=== PATIENT | male | born 1985 | race Caucasian/White ===

== ENCOUNTER 2020-03-01 10:28 | Outpatient (REF) | payer SELFPAY | END 2020-03-01 10:29 | disposition home or self-care (01) | LOC: HO.LAB 10:28 | PROVIDERS: Visit Provider Internal Medicine | DX: Z20.828 Contact with and (suspected) exposure to other viral communicable diseases (principal) | CPT/HCPCS: C9803; U0003 ==

== ENCOUNTER 2020-08-22 14:45 | Emergency (ER) | payer OTHER, SELFPAY ==
[2020-08-22 14:48] VITALS: BP 160/85; PULSE 76; RESP 18; TEMP 37.2; O2SAT 98; BMI 31.4
--- NOTE | 2020-08-22 15:31 | ED.BACK ---
HPI - Back Pain/Injury General Chief Complaint: Back Pain/Injury Stated Complaint: back pain Time Seen by Provider: 08/22/20 15:31 History of Present Illness HPI Narrative: Patient with left-sided low back pain after lifting injury at work which happened 2 days ago complains of back pain with no numbness weakness or tingling no changes to bowel or bladder no radiation of pain Related Data Previous Rx's Medication Instructions Recorded acetaminophen 1,000 mg PO Q6H PRN #30 tab 08/22/20 cyclobenzaprine 10 mg PO TID PRN #14 tab 08/22/20 ibuprofen 800 mg PO Q8H PRN #30 tab 08/22/20 Allergies Allergy/AdvReac Type Severity Reaction Status Date / Time No Known Allergies Allergy Unverified 01/01/20 18:52 Review of Systems Review of Systems: Positive for left-sided low back pain Negatives are no fever no chills no dizziness no weakness no fainting no feeling faint no chest pain no shortness of breath no abdominal pain no changes to bowel or bladder no dysuria no frequency no incontinence, no skin rashes, no numbness weakness or tingling Yes all other systems are reviewed and are negative [facility] Past Medical History Source: nursing notes reviewed Medical History (Updated 08/23/20 @ 00:00 by Background Daemon) No active medical problems Social History Social History Advance Directives: No Advance Directives Information Provided: Yes Physical Exam Vital Signs: Vital Signs: Last Vital Signs Temp 99.0 F 08/22/20 14:48 Pulse 76 08/22/20 14:48 Resp 18 08/22/20 14:48 BP 160/85 H 08/22/20 14:48 Pulse Ox 98 08/22/20 14:48 Body Mass Index 31.4 General appearance no acute distress Head is normocephalic atraumatic Neck is supple and nontender Respiratory no distress Abdomen soft nontender The back exam the skin is normal there are no wounds no redness no deformities, there is no bony tenderness, there is left paraspinal lower lumbar tenderness, there is no CVA tenderness Extremities full range of motion x4 Skin no rash Neuro no focal motor or sensory deficit, gait and balance are normal Course Course Course Narrative: Patient with work-related musculoskeletal back pain is referred were connection Discharge Plan Discharge Clinical Impression: Strain of lumbar region Patient Disposition: Home, Self-Care Additional Instructions: Follow with workmen's compensation doctor as needed Motrin and or Tylenol as needed for pain Return any concerns Chiropractor and physical therapy are almost always helpful, but usually it gets better in a few days Prescriptions: New ibuprofen 800 mg tablet 800 mg PO Q8H PRN (Reason: pain) Qty: 30 RF: 0 cyclobenzaprine 10 mg tablet 10 mg PO TID PRN (Reason: muscle spasm) Qty: 14 RF: 0 acetaminophen 500 mg tablet 1,000 mg PO Q6H PRN (Reason: pain) Qty: 30 RF: 0 Interventions: ED Discharge Assessment Last Done: 08/22/20 15:44 Discharge Date/Time: 08/22/20 15:45
== END 2020-08-22 15:45 | disposition home or self-care (01) ==
PROVIDERS: Emergency Provider Emergency Medicine Emergency Medical Services; PCP Internal Medicine
DX: S39.012A Strain of muscle, fascia and tendon of lower back, initial encounter (principal); X50.0XXA Overexertion from strenuous movement or load, initial encounter; Y93.9 Activity, unspecified; Y92.9 Unspecified place or not applicable; Y99.9 Unspecified external cause status; Z79.899 Other long term (current) drug therapy
CPT/HCPCS: 99283

== ENCOUNTER 2021-02-07 17:58 | Emergency (ER) | payer OTHER, SELFPAY ==
[2021-02-07 19:46] VITALS: BP 138/84; PULSE 59; RESP 18; TEMP 36.8; O2SAT 100; BMI 33.4
[2021-02-07 20:07] LABS: COVID-19 Test Positive (Negative)
[2021-02-07 20:58] VITALS: PULSE 68; O2SAT 100
--- NOTE | 2021-02-07 21:16 | ED_ITS ---
HPI - URI/Sore Throat General Chief Complaint: General Medical Stated Complaint: loss taste body aches Time Seen by Provider: 02/07/21 20:40 Source: patient Mode of arrival: ambulatory Limitations: no limitations History of Present Illness HPI Narrative: 35-year-old male who is vaccinated to COVID presenting to the ED with complaints of a coated exposure and intermittent headache/body aches and loss of taste that started on Sunday. Denies recent travel. Denies any measured fevers, chills, dizziness, neck pain/stiffness, chest pain or shortness of breath, sore throat, ear pain, nasal congestion/rhinorrhea, cough, wheezing, nausea/vomiting/diarrhea, abdominal pain, dysuria, hematuria, penile discharge or any other symptoms complaints or concerns at this time. MD elicited complaint: other (Loss of taste with intermittent headaches and COVID exposure) Onset (ago): day(s) (Four days) Consistency: constant and progressively worsening Severity: mild Able to tolerate fluids by mouth: Yes Exacerbating factors: nothing Relieving factors: nothing Context: sick contacts Associated symptoms: denies other symptoms Treatments prior to arrival: none Related Data Previous Rx's Medication Instructions Recorded acetaminophen 500 mg tablet 1,000 mg PO Q6H PRN #30 tab 08/22/20 cyclobenzaprine 10 mg tablet 10 mg PO TID PRN #14 tab 08/22/20 ibuprofen 800 mg tablet 800 mg PO Q8H PRN #30 tab 08/22/20 acetaminophen 500 mg tablet 1,000 mg PO QID PRN #14 tab 02/07/21 (Tylenol Extra Strength) azithromycin 250 mg tablet See Rx Instructions .ROUTE 02/07/21 .COMPLEX #6 tab cyclobenzaprine 10 mg tablet 10 mg PO Q8H PRN #14 tab 02/07/21 ibuprofen 800 mg tablet 800 mg PO Q8H PRN #14 tab 02/07/21 Allergies Allergy/AdvReac Type Severity Reaction Status Date / Time No Known Allergies Allergy Unverified 01/01/20 18:52 Review of Systems Review of Systems: Constitutional : Positive loss of taste, No Weight loss, No Fever, No Chills, No Night Sweats, No Fatigue, No Malaise ENT/Mouth : No Hearing loss, No Ear Pain, No Nasal Congestion, No Sinus Pain, No Hoarseness, No sore throat, No Rhinorrhea, No Swallowing Difficulty Eyes: No Eye Pain, No Swelling, No Redness, No Foreign Body, No Discharge, No Vision Changes Cardiovascular : No Chest Pain, No SOB, No Dyspnea on Exertion, No Orthopnea, No Edema, No Palpitations Respiratory : No Cough, No Sputum, No Wheezing, No Smoke Exposure, No Dyspnea Gastrointestinal : No Nausea, No Vomiting, No Diarrhea, No Constipation, No abdominal Pain, No Hematochezia, No Melena Genitourinary : no irregular bleeding, No Dysuria, No Urinary Frequency, No Hematuria, No Urinary Incontinence, No Urgency, No Flank Pain, No Urinary Flow Changes, No Hesitancy Musculoskeletal : No joint pain, No Myalgias, No Joint Swelling Skin : No Skin Lesions, No rash Neuro : Positive intermittent headaches, No Weakness, No Numbness, No Paresthesias, No Loss of Consciousness, No Dizziness Psych : No Anxiety/Panic, No Depression, No SI/HI/AH/VH, No Social Issues, Heme/Lymph: No Bruising, No Bleeding,No Lymphadenopathy Endocrine : No Polyuria, No Polydipsia, No Temperature Intolerance Yes all other systems are reviewed and are negative [facility] Past Medical History Attestation statement: The following information was validated with the patient. Medical History No active medical problems Social History Social History Advance Directives: No Advance Directives Information Provided: Yes Physical Exam Vital Signs: Vital Signs: Last Vital Signs Temp 98.2 F 02/07/21 19:46 Pulse 68 02/07/21 20:58 Resp 18 02/07/21 19:46 BP 138/84 02/07/21 19:46 Pulse Ox 100 02/07/21 20:58 Body Mass Index 33.4 vital signs have been reviewed as normal and appeared to be correct. Blood pressure normal Heart rate normal. Respiration rate normal. Temperature normal. Oxygen saturation normal. Appearance: Alert. Oriented X3. No acute distress. Head: Normal external exam. Normocephalic. Atraumatic. Eyes: PERRLA. EOMI. Conjunctiva and sclera normal. Eyelids normal. ENT: Pharynx normal. Uvula midline. Moist mucous membranes. Neck: Normal inspection. Neck supple. FROM. CVS: Normal heart rate and rhythm. Respiratory: No respiratory distress. Painless inspiration. Skin: Skin warm and dry. Normal skin color. Normal skin turgor. No rashes/lesions/lacerations noted. Extremities: Extremities exhibit normal range of motion. Extremities nontender. Neuro: Oriented X 3. No motor deficit. No sensory deficit. Reflexes normal. Normal steady gait. No focal neuro deficits noted. Vascular: + radial pulses Normal cap refill. No cyanosis noted to upper extremity nails Course Course Course Narrative: 35-year-old male who is vaccinated to COVID presenting to the ED with complaints of a coated exposure and intermittent headache/body aches and loss of taste that started on Sunday. Denies recent travel. Denies any measured fevers, chills, dizziness, neck pain/stiffness, chest pain or shortness of breath, sore throat, ear pain, nasal congestion/rhinorrhea, cough, wheezing, nausea/vomiting/diarrhea, abdominal pain, dysuria, hematuria, penile discharge or any other symptoms complaints or concerns at this time. Patient positive for COVID. No imaging or labs indicated. Will DC home with instructions return if any new or worsening symptoms to follow up with primary care provider. Patient understands agrees with this plan. MDM - URI/Sore Throat Medical Records Attestation: I reviewed the patient's medical records. Lab Data Attestation: I reviewed the patient's lab results. Labs: Lab Results 02/07/21 Range/Units 19:52 COVID-19 (TRE) Positive A (Negative) COVID-19 Clin Com See Note Discharge Plan Discharge Clinical Impression: COVID-19 Patient Disposition: Home, Self-Care Instructions: COVID-19 (Coronavirus Disease 2019) (ED) Additional Instructions: A New Treatment Option for COVID-19 Patients recently diagnosed with COVID-19 have a new treatment option ? mo noclonal antibodies. There are three FDA-authorized COVID-19 monoclonal antibodies: casirivimab and imdevimab (REGEN-COV), bamlanivimab and etesevimab, and sotrovimab. We are currently offering this treatment to eligible patients by referral [email or web address] . The research so far shows that for certain people, this treatment may help their symptoms improve sooner and might make it less likely for them to need to go to the hospital. These are new drugs that are still being studied. They have been authorized for emergency use by the FDA based on phase III clinical data that showed monoclonal antibody treatment may decrease ED visit, hospitalization and/or . Eligible patients should be treated as soon as possible (ideally within 3 days from date of specimen collection of a positive SARS CoV2 PCR) and within 10 days from the first day of onset of symptoms. If you believe your patient is eligible and the patient agrees to be considered for this treatment, there are two ways to make the referral: 1. If you are a [facility] provider:?Send a CIS message to the ?Covid Monoclonal Antibody Coordinator? pool with the necessary patient information including the date of the positive SARS CoV2 PCR test and when the first day of symptoms started . 2. If you are a provider from outside of the [facility]: Please call [phone] tel:[phone] . If you are a patient interested in this treatment: Please talk to your healthcare provider. Prescriptions: New cyclobenzaprine 10 mg tablet 10 mg PO Q8H PRN (Reason: Muscle spasm) Qty: 14 RF: 0 azithromycin 250 mg tablet See Rx Instructions .ROUTE .COMPLEX Qty: 6 RF: 0 ibuprofen 800 mg tablet 800 mg PO Q8H PRN (Reason: pain) Qty: 14 RF: 0 acetaminophen [Tylenol Extra Strength] 500 mg tablet 1,000 mg PO QID PRN (Reason: fever or pain) Qty: 14 RF: 0 No Action ibuprofen 800 mg tablet 800 mg PO Q8H PRN (Reason: pain) Qty: 30 RF: 0 cyclobenzaprine 10 mg tablet 10 mg PO TID PRN (Reason: muscle spasm) Qty: 14 RF: 0 acetaminophen 500 mg tablet 1,000 mg PO Q6H PRN (Reason: pain) Qty: 30 RF: 0 Referrals: Nieves Ferreira MD [Primary Care Provider] - 2 days Stand Alone Forms: Work/School Release Print Language: Filipino
== END 2021-02-07 21:40 | disposition home or self-care (01) ==
PROVIDERS: Emergency Provider Internal Medicine; PCP Internal Medicine
DX: U07.1 COVID-19 (principal)
CPT/HCPCS: 36415; 87635; 99283

== ENCOUNTER 2024-01-23 00:09 | Emergency (ER) | payer OTHER, SELFPAY ==
--- NOTE | ~2024-01-23 | XR_ITS ---
EXAMINATION: XR HAND, LEFT CLINICAL INFORMATION: Injury. Acute pain. COMPARISON: None available. TECHNIQUE: PA, lateral, and oblique views of the left hand. FINDINGS: No fractures, malalignments, soft tissue emphysematous changes or embedded radiopaque foreign bodies identified. XR/XR hand LT 2V IMPRESSION: No acute fractures or acute subluxations. Electronically signed by: Yariel Rutledge MD 01/23/2024 02:56 AM EDT
[2024-01-23 00:10] VITALS: BP 153/90; PULSE 67; RESP 18; TEMP 36.6; O2SAT 99; BMI 28.4
[2024-01-23 00:59] VITALS: BP 139/77; PULSE 60; RESP 17; TEMP 36.9; O2SAT 99
--- NOTE | 2024-01-23 01:12 | ED_ITS ---
HPI - Extremity Problem General Chief complaint: Extremity Injury, Upper Stated complaint: left hand laceration Time Seen by Provider: 01/23/24 01:04 Source: patient Mode of arrival: ambulatory Limitations: no limitations History of Present Illness ED Provider: rony JANE Narrative: Patient comes here with left palmar laceration from the impact of door of the pressing machine smashed his hand on the dorsum aspect but got the laceration on the palmar aspect patient is able to make fist neurovascular intact last tetanus showed talked to date Related Data Previous Rx's ?Medication ?Instructions ?Recorded erythromycin 5 mg/gram (0.5 %) eye 0.5 inch ophthalmic (eye) TID #1 g 07/17/22 ointment amoxicillin 875 mg-potassium 1 tab PO BID #20 tabs 01/23/24 clavulanate 125 mg tablet Allergies Allergy/AdvReac Type Severity Reaction Status Date / Time No Known Allergies Allergy Verified 01/23/24 00:14 Review of Systems 2 Review of Systems: Yes all other systems are reviewed and are negative PMFSH Past Medical History Medical History No active medical problems Social History Social History Patient Tobacco Use Status: Never used Tobacco Smoked in Last 30 Days: No Use of substances other than those prescribed or required for medical reasons: Yes Substance Use Type: Marijuana Advance Directives: No Do you have a plan to hurt others: No Plan Physical Exam 2 Vital Signs: Vital Signs: Last Vital Signs Temp 98.5 F 01/23/24 01:34 Pulse 60 01/23/24 01:34 Resp 17 01/23/24 01:34 BP 139/77 01/23/24 01:34 Pulse Ox 99 01/23/24 01:34 O2 Del Method Room Air 01/23/24 01:34 BMI result Body Mass Index 28.4 Extrem: Hand/finger images: 1. 1 cm superficial laceration left palmar aspect neurovascular intact Medications Administered Discontinued Medications Generic Name Dose Route Start Last Admin Trade Name Freq PRN Reason Stop Dose Admin Amoxicillin/Clavulanate Potassium 875 mg 01/23/24 01:12 01/23/24 01:30 Amoxicillin/Potassium Clav 875 Mg Tablet PO 01/23/24 01:13 875 mg ONCE ONE Administration Lidocaine HCl 2 ml 01/23/24 01:12 01/23/24 01:30 Lidocaine Hcl 1 % Mpf 2 Ml Vial INFILTRATI 01/23/24 01:13 2 ml ONCE ONE Administration Procedures Laceration Laceration 1: Site: hand Side (If applicable): left Size (cm): 1 Description: linear Depth: simple, single layer Local Anesthetic: lidocaine 1% Amount of anesthesia used (mL): 1 Pre-repair: irrigated extensively Skin layer closed with: nylon Size (cm): 5-0 Number of sutures: 3 Discharge Plan Discharge Clinical Impression: Laceration of hand Patient Disposition: Home, Self-Care Instructions: Laceration (ED) Additional Instructions: Local care as advised Antibiotic as prescribed Suture removal in 7-10 days Prescriptions: New amoxicillin-pot clavulanate 875-125 mg tablet 1 tab PO BID Qty: 20 0RF No Action erythromycin 5 mg/gram (0.5 %) ointment 0.5 inch ophthalmic (eye) TID Qty: 1 0RF Interventions: ED Discharge Assessment Last Done: 01/23/24 01:34 Discharge Date/Time: 01/23/24 01:34 Print Language: Jordanian
[2024-01-23] MEDS: Amoxicillin/Potassium Clav 875 MG TABLET PO (01:30)
[2024-01-23] MEDS: Lidocaine HCl 1 % MPF 2 ML VIAL INFILTRATI (01:30)
[2024-01-23 01:34] VITALS: BP 139/77; PULSE 60; RESP 17; TEMP 36.9; O2SAT 99
== END 2024-01-23 01:34 | disposition home or self-care (01) ==
LOC: HO.ED 01:28
PROVIDERS: Emergency Provider Internal Medicine; PCP Internal Medicine
DX: S61.412A Laceration without foreign body of left hand, initial encounter (principal); W20.8XXA Other cause of strike by thrown, projected or falling object, initial encounter; Y93.89 Activity, other specified; Y92.59 Other trade areas as the place of occurrence of the external cause; Y99.0 Civilian activity done for income or pay
CPT/HCPCS: 12001; 73120; 99284; J2003

== ENCOUNTER 2024-02-01 09:14 | Outpatient (AMB) | payer OTHER, SELFPAY ==
--- NOTE | 2024-02-01 09:31 | AM.OFFWIN_ITS ---
Intake Vital Signs 3 02/01/24 09:33 Height 5 ft 8 in Weight 202 lb BMI 30.7 BP 118/70 Blood Pressure Location Rt brachial Position Sitting Pulse 66 Pulse Source Pulse Oximeter Pulse Oximetry (%) 98 Oxygen Delivery Method Room Air Intake Visit Reasons: EP-stiches removal Intake Note: Patient here for stitch removal which were placed at [facility]. Stitches have been in for about 10 days. Patient Tobacco Use Status: Never used Tobacco Allergies No Known Allergies Allergy (Verified 02/01/24 09:34) Medication List - Last Reconciled 02/01/24 by Timothy Mast MD Do you need a note to return to daycare/school/sports/work: No HPI EP-stiches removal 2 HPI0 Details Patient had stitches placed a week ago when he injured his left hand because of the door Three stitches removed without any complications They were placed on 9 of this month in emergency room Tetanus vaccine up-to-date Patient tolerated procedure well Wound is well healed HPI Comments 2 History of Present Illness0 Details [facility] Medical History No active medical problems Social History Patient Tobacco Use Status: Never used Tobacco Substance Use Type: Marijuana Physical Exam Vital Signs: Last Vital Signs Pulse 66 02/01/24 09:33 BP 118/70 02/01/24 09:33 Pulse Ox 98 02/01/24 09:33 Oxygen Delivery Method Room Air 02/01/24 09:33 BMI result Body Mass Index 30.7 Eyes General: appearance normal, both eyes and all related structures Resp Effort & Inspection: normal respiratory effort and able to speak in complete sentences Extrem Hand/finger images: 2 1. Three sutures removed without any complication, wound is well healed Psych Mental Status: mental status grossly normal Assessment & Plan Assessment & Plan (1) Visit for suture removal: Code(s): Z48.02 - Encounter for removal of sutures Plan Patient had stitches placed a week ago when he injured his left hand because of the door Three stitches removed without any complications They were placed on 9 of this month in emergency room Tetanus vaccine up-to-date Patient tolerated procedure well Wound is well healed Coding Level of Care Code Est Pt Level 3 (55021) Diagnoses Visit for suture removal Z48.02 Comment
[2024-02-01 09:33] VITALS: BP 118/70; PULSE 66; O2SAT 98; BMI 30.7
== END 2024-02-01 09:57 | disposition home or self-care (01) ==
PROVIDERS: PCP Internal Medicine; Visit Provider Internal Medicine
DX: Z48.02 Encounter for removal of sutures (principal)

== ENCOUNTER → 2024-02-01 09:14 | Outpatient (BNVA) | payer OTHER, SELFPAY | PROVIDERS: PCP Internal Medicine; Visit Provider Internal Medicine | DX: Z48.02 Encounter for removal of sutures (principal) | CPT/HCPCS: 99212 ==

== ENCOUNTER 2024-05-14 09:48 | Outpatient (AMB) | payer OTHER, SELFPAY ==
[2024-05-14 10:33] VITALS: BP 130/80; PULSE 64; TEMP 36.4; O2SAT 98; BMI 30.7
--- NOTE | 2024-05-14 10:33 | A.OFFPC_ITS ---
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 Patient has been complaining of a mass just below his belly button which has been present now since 2018. Initially was painful, was seen at the walk-in 2018 and referred to general surgery. Patient however states that he never received an appointment to be seen by surgeon. Masses still present infraumbilical area, nontender to palpation no active drainage, no discomfort when doing any heavy lifting. Patient states however that he is going to be starting a new job and wants to make sure that it is not a hernia. Has not yet had his flu vaccine, would like to get 1 today [facility] Medical History (Updated 05/14/24 @ 11:01 by Nieves Ferreira MD) History of COVID-19 Mass of soft tissue of abdomen Surgical History (Updated 05/14/24 @ 11:01 by Nieves Ferreira MD) No pertinent past surgical history Family History (Updated 05/14/24 @ 11:06 by Nieves Ferreira MD) Paternal Grandfather Mental health disorder Diabetes mellitus Paternal Grandmother Mental health disorder Mother Mental health disorder Father Essential hypertension Atherosclerotic coronary vascular disease Mother Asthma Maternal Grandfather Diabetes mellitus Maternal Uncle Diabetes mellitus Paternal Uncle Diabetes mellitus Social History Housing: House Patient Tobacco Use Status: Never used Tobacco e-Cigarette/Vaping Use: Never Used Substance Use Type: Marijuana service: No Current occupational status: employed Cognitive needs: No Hearing needs: No Vision needs: No Questionnaire PHQ-9 Over the last 2 weeks, how often have you been bothered by any of the following problems? 1. Little interest or pleasure in doing things: not at all 2. Feeling down, depressed, or hopeless: not at all 3. Trouble falling or staying asleep, or sleeping too much: not at all 4. Feeling tired or having little energy: not at all 5. Poor appetite or overeating: not at all 6. Feeling bad about yourself - or that you are a failure or have let yourself or your family down: not at all 7. Trouble concentrating on things, such as reading the newspaper or watching television: not at all 8. Moving or speaking so slowly that other people could have noticed. Or the opposite - being so fidgety or restless that you have been moving around a lot more than usual: not at all 9. Thoughts that you would be better off or of hurting yourself in some way: not at all Total score: 0 Depression Screening Interpretation: Negative Depression Screening Done: Yes 49233 - PHQ-9 Billing: Yes Source: Developed by Drs. Mike Blanco, Evelin Massey, Peter Henderson and colleagues, with an educational rebecca from [employer]. Thrive Questionnaire Date Thrive assessed: 05/14/24 I am a: Patient What is your living situation today?: I have a steady place to live Within the past 12 months, did the food you bought not last and you didn't have the money to get more?: Often true Within the past 12 months, did you worry whether your food would run out before you got money to buy more?: Often true Do you have trouble paying for medicines?: No Do you have trouble getting transportation to medical appointments?: No Do you have trouble paying your heating and electricity bill?: Yes Do you have trouble taking care of your child, family member or friend?: No Do you have trouble with day-to-day activities such as bathing, preparing meals, shopping, managing finances, etc.?: No Are you currently unemployed and looking for a job?: No Are you interested in more education?: No Please select the resources that you would like help with: Food Currently or been in a relationship where the following occur: No concerns reported THRIVE Score: 3 AUDIT C Alcohol Use Questionnaire (AUDIT-C) 1. How often do you have a drink containing alcohol?: Never Total Score: 0 ADRIANE-7 AMB Questionnaire ADRIANE-7 Date ADRIANE - 7 assessed: 05/14/24 Feeling nervous, anxious, or on edge: 0 = Not at all Not being able to stop or control worryin = Not at all Worrying too much about different things: 0 = Not at all Trouble relaxin = Not at all Being so restless that it is hard to sit still: 0 = Not at all Becoming easily annoyed or irritable: 1 = Several days Feeling afraid as if something awful might happen: 0 = Not at all Total ADRIANE-7 score (0-4 normal; 5-9 mild; 10-14 moderate; 15-21 severe): 1 Source: Developed by Drs. Mike Blanco, Evelin Massey, Peter Henderson and colleagues, with an educational rebecca from [employer]. ADRIANE-7 Assessment Billing ADRIANE-7 Assessment Tool: ADRIANE-7 Assessment 32465 Review of Systems Const All systems reviewed & are unremarkable except as noted in HPI and below Physical exam (Primary Care) Vital Signs: Last Vital Signs Temp 97.6 F 05/14/24 10:33 Pulse 64 05/14/24 10:33 BP 130/80 05/14/24 10:33 Pulse Ox 98 05/14/24 10:33 Oxygen Delivery Method Room Air 05/14/24 10:33 BMI result Body Mass Index 30.7 Tobacco/Smoking Status: Tobacco use Status Tobacco use date assessed 05/14/24 05/14/24 10:36 Patient Tobacco Use Status Never used Tobacco 05/14/24 10:36 e-Cigarette/Vaping Use Never Used 05/14/24 10:41 PHQ-9: PHQ-9 Score PHQ-9: Total score 0 05/14/24 10:46 Depression Screening Interpretation: Negative Thrive Assessment: Date of Thrive Assessment Date Thrive assessed 05/14/24 05/14/24 10:46 Currently or been in a relationship where the following occur: No concerns reported Const Other: Alert oriented x3, no acute distress noted ambulatory normal gait Neck Other: Supple with no lymphadenopathy GI Other: Fluctuant nontender mass on infraumbilical area, no surrounding erythema or increased warmth over area Palpation (GI): Soft to palpation, nontender and no guarding Auscultation: normal bowel sounds Coding Level of Care Code New Pt Level 3 (75698) Diagnoses Mass of soft tissue of abdomen R19.00 Flu vaccine need Z23 Additional Codes PHQ-9 - 01724 - PHQ-9 Billing: Yes ([id number]) ADRIANE-7 Assessment Billing - ADRIANE-7 Assessment Tool: ADRIANE-7 Assessment 00683 ([id number]) Assessment & Plan Assessment & Plan (1) Mass of soft tissue of abdomen: Code(s): R19.00 - Intra-abdominal and pelvic swelling, mass and lump, unspecified site Category: Medical Plan: Ordered an abdominal ultrasound evaluate for possible hernia (2) Flu vaccine need: Code(s): Z23 - Encounter for immunization Plan: Flu vaccine given today. Orders: Orders US abdomen complete Today R19.00 - Intra-abdominal and pelvic swelling, mass and lump, unspecified site Influenza [id number] Immunization Today Z23 - Encounter for immunization Medications: New Fluarix Triv [id number] (PF) (flu vacc [id number] 6mos up(PF)) 0.5 mL IM ONCE 0.5 mL 0RF NS Z23 - Encounter for immunization
== END 2024-05-14 11:15 | disposition home or self-care (01) ==
PROVIDERS: PCP Internal Medicine; Visit Provider Internal Medicine
DX: R19.00 Intra-abdominal and pelvic swelling, mass and lump, unspecified site (principal); Z23 Encounter for immunization

== ENCOUNTER → 2024-05-14 09:48 | Outpatient (BNVA) | payer OTHER, SELFPAY | PROVIDERS: PCP Internal Medicine; Visit Provider Internal Medicine | DX: R19.00 Intra-abdominal and pelvic swelling, mass and lump, unspecified site (principal) | CPT/HCPCS: 96127; 99202 ==

== ENCOUNTER 2024-06-11 08:53 | Outpatient (REF) | payer OTHER, SELFPAY ==
--- NOTE | ~2024-06-11 | US_ITS ---
EXAMINATION: US PELVIS LIMITED HISTORY: R19.00 - SOFT TISSUE MASS BELOW BELLY BUTTON COMPARISON: There are no prior studies for comparison. TECHNIQUE: Sonographic examination of the palpable abnormality of the anterior abdominal wall below the umbilicus was performed. FINDINGS: There is a fat-containing ventral hernia measuring approximately 5.5 cm in size. The mouth of the hernia measures approximately 1.6 cm in size. US/US pelvic limited IMPRESSION: Fat-containing ventral hernia as described. Electronically signed by: Mike Weiss MD 06/11/2024 10:34 AM [facility] [place]
== END 2024-06-11 08:54 | disposition home or self-care (01) ==
LOC: HO.US 08:53
PROVIDERS: PCP Internal Medicine; Visit Provider Internal Medicine
DX: R19.00 Intra-abdominal and pelvic swelling, mass and lump, unspecified site (principal)
CPT/HCPCS: 76857

== ENCOUNTER → 2024-06-11 08:54 | Outpatient (BNV) | payer OTHER, SELFPAY | PROVIDERS: PCP Internal Medicine; Visit Provider Radiology Diagnostic Radiology | DX: K43.9 Ventral hernia without obstruction or gangrene (principal); R19.00 Intra-abdominal and pelvic swelling, mass and lump, unspecified site | CPT/HCPCS: 76857 ==

== ENCOUNTER 2024-06-16 08:21 | Outpatient (AMB) | payer OTHER, SELFPAY ==
[2024-06-16 08:24] VITALS: BP 147/86; PULSE 59; BMI 31.6
--- NOTE | 2024-06-16 08:24 | MHC.OFFVIS ---
Vital Signs 06/16/24 08:24 Height 5 ft 8 in Weight 208 lb BMI 31.6 BP 147/86 H Blood Pressure Location Rt brachial Position Sitting Pulse 59 Intake Visit Reasons: Ventral hernia Intake Note: Patient referred by pcp Dr. Ferreira for verntral hernia. Present for 7yrs. Patient c/o: bothersome, stinging around area, feels bloated. 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 He has had this several years time. Over the last several months it has markedly increased in size and become more symptomatic. He would like to have repaired. He has no other GI issues or complaints. He tolerates a diet. Does occasional heavy lifting. No prior abdominal surgeries. Chart was reviewed and patient evaluated [facility] Medical History Hernia, ventral History of COVID-19 Mass of soft tissue of abdomen Surgical History No pertinent past surgical history Family History Paternal Grandfather Mental health disorder Diabetes mellitus Paternal Grandmother Mental health disorder Mother Mental health disorder Father Essential hypertension Atherosclerotic coronary vascular disease Mother Asthma Maternal Grandfather Diabetes mellitus Maternal Uncle Diabetes mellitus Paternal Uncle Diabetes mellitus Social History Housing: House Patient Tobacco Use Status: Never used Tobacco e-Cigarette/Vaping Use: Never Used Substance Use Type: Marijuana service: No Current occupational status: employed Cognitive needs: No Hearing needs: No Vision needs: No Physical Exam Vital Signs: Last Vital Signs Pulse 59 06/16/24 08:24 BP 147/86 H 06/16/24 08:24 BMI result Body Mass Index 31.6 Const Other: Well-developed male. No acute distress. Chest Other: Chest breath sounds bilaterally, HS 1 in 2 GI Other: Patient was examined both supine and standing with Valsalva. Bilateral groin exam negative. Genitalia within normal limits. Patient has a roughly 4 cm incarcerated umbilical hernia. Assessment & Plan Assessment & Plan (1) Incarcerated umbilical hernia: Code(s): K42.0 - Umbilical hernia with obstruction, without gangrene Category: Surgical Plan Risks, benefits, and alternatives open umbilical hernia repair with mesh were reviewed with the patient included but not limited to bleeding, infection, recurrence, numbness, pain, scarring, bowel injury and the patient wishes to proceed. All questions answered. Arrangements will be made for this on a day which is convenient for him. Coding Level of Care Code New Pt Level 5 (74694) Diagnoses Incarcerated umbilical hernia K42.0
== END 2024-06-16 08:42 | disposition home or self-care (01) ==
PROVIDERS: PCP Internal Medicine; Referring Provider Internal Medicine; Visit Provider Surgery
DX: K42.0 Umbilical hernia with obstruction, without gangrene (principal)
CPT/HCPCS: 99204

== ENCOUNTER → 2024-06-16 08:21 | Outpatient (BNVA) | payer SELFPAY | PROVIDERS: PCP Internal Medicine; Referring Provider Internal Medicine; Visit Provider Surgery | DX: K42.0 Umbilical hernia with obstruction, without gangrene (principal) | CPT/HCPCS: 99202 ==

== ENCOUNTER 2024-07-11 10:11 | Day surgery (SDC) | payer OTHER, SELFPAY ==
[2024-07-09 09:54] VITALS: BMI 31.6
--- NOTE | 2024-07-10 12:05 | P.HPSUR_ITS ---
Pre-Procedural Eval Section A - 24 Hr Update-Section A only Date of Service: 07/11/24 The patient is an INPATIENT: No Changes since office visit: No Cold of Flu in the past 2 weeks, No New Medical Problems, No Changes in Medication and No Patient answered all questions Section B - Complete if H&P > 30 days Chief Complaint: Umbilical hernia with obstruction, Allergies: Allergies Allergy/AdvReac Type Severity Reaction Status Date / Time No Known Allergies Allergy Verified 06/16/24 08:29 Review of Systems Sugical H&P ROS: Negative: Constitution, Cardiovascular, Respiratory, Neurological, Psychiatric, Hem-Onc, Allergic/Immunologic, Gastrointestinal, Genitourinary, Musculoskeletal, Integumentary, Endocrine and Eyes/Ears/Nose/T hroat Exam Surgical H&P Exam: Normal: HEENT, Normal: Heart, Normal: Lungs, Normal: Extremities, Normal: Abdomen, Normal: Skin and Normal: Neurological Plan I have reviewed the history and physical and performed a pertinent physical examination on my patient. No changes have occurred unless specified. Time Spent With Patient Time: Total time managing care of this patient today ____ minutes.
[2024-07-11] VITALS (7 sets, daily range): BP systolic 128–153; BP diastolic 68–102; PULSE 52–71; RESP 16; TEMP 36.1–36.4; O2SAT 95–100; BMI 31.2
--- NOTE | 2024-07-11 12:08 | P.CONAN_ITS ---
Documented by User: Sandee Barba NP 07/10/24 10:09 HPI - Anesthesia Eval Consult details Narrative: 38yo M for Large Repair Hernia Umbilical Reducible with mesh PMFSH Active Problems Active Problems: All Active Problems Incarcerated umbilical hernia (Acute) COVID-19 (Acute) Hernia, ventral (Acute) Mass of soft tissue of abdomen (Acute) Past Medical History Medical History (Updated 07/09/24 @ 09:51 by Jessica Horowitz RN) Hernia, ventral Mass of soft tissue of abdomen Family History Family History Paternal Grandfather Mental health disorder Diabetes mellitus Paternal Grandmother Mental health disorder Mother Mental health disorder Father Essential hypertension Atherosclerotic coronary vascular disease Mother Asthma Maternal Grandfather Diabetes mellitus Maternal Uncle Diabetes mellitus Paternal Uncle Diabetes mellitus Surgical History Surgical History (Updated 06/16/24 @ 08:40 by Keith Mata MD) No pertinent past surgical history Social History Social History Housing: House Patient Tobacco Use Status: Never used Tobacco e-Cigarette/Vaping Use: Never Used Use of substances other than those prescribed or required for medical reasons: Yes Substance Use Type: Marijuana Substance Use Type Other:: Last smoked 07/10 Substance Use Frequency: Daily Are you DNR?: No Advance Directives: No Advance Directives Information Provided: Yes service: No Current occupational status: employed Cognitive needs: No Hearing needs: No Vision needs: No Meds Allergies Allergy/AdvReac Type Severity Reaction Status Date / Time No Known Allergies Allergy Verified 06/16/24 08:29 Exam Height,Weight and Vital Signs: Height 5 ft 8 in Weight 94.347 kg Assessment and Plan Assessment Anesthesia Assessment: Chart Reviewed Documented by User: Awilda Ordonez DO 07/11/24 12:11 HPI - Anesthesia Eval Consult details Narrative: 38yo M for Large Repair Hernia Umbilical Reducible with mesh Daily marijuana PMFSH Past Medical History Medical History (Updated 07/09/24 @ 09:51 by Jessica Horowitz RN) Hernia, ventral Mass of soft tissue of abdomen Family History Family History Paternal Grandfather Mental health disorder Diabetes mellitus Paternal Grandmother Mental health disorder Mother Mental health disorder Father Essential hypertension Atherosclerotic coronary vascular disease Mother Asthma Maternal Grandfather Diabetes mellitus Maternal Uncle Diabetes mellitus Paternal Uncle Diabetes mellitus Family history of problems with anesthesia: No Surgical History Surgical History (Updated 06/16/24 @ 08:40 by Keith Mata MD) No pertinent past surgical history History of Problems with Anesthesia: No Social History Social History Housing: House Patient Tobacco Use Status: Never used Tobacco e-Cigarette/Vaping Use: Never Used Use of substances other than those prescribed or required for medical reasons: Yes Substance Use Type: Marijuana Substance Use Type Other:: Last smoked 07/10 Substance Use Frequency: Daily Are you DNR?: No Advance Directives: No Advance Directives Information Provided: Yes service: No Current occupational status: employed Cognitive needs: No Hearing needs: No Vision needs: No Meds Allergies Allergy/AdvReac Type Severity Reaction Status Date / Time No Known Allergies Allergy Verified 06/16/24 08:29 Exam Exam Date and Time: 07/11/24 1208 Height,Weight and Vital Signs: Height 5 ft 8 in Weight 94.347 kg Vital Signs Temperature 97.6 F 07/11/24 12:00 Pulse Rate 52 07/11/24 12:00 Respiratory Rate 16 07/11/24 12:00 Blood Pressure 150/87 H 07/11/24 12:00 Pulse Oximetry 99 07/11/24 12:00 Oxygen Delivery Method Room Air 07/11/24 12:00 Temperature 97.6 F 07/11/24 12:00 Pulse Rate 52 07/11/24 12:00 Respiratory Rate 16 07/11/24 12:00 Blood Pressure 150/87 H 07/11/24 12:00 Pulse Oximetry 99 07/11/24 12:00 Oxygen Delivery Method Room Air 07/11/24 12:00 Airway Mallampati Class: II TM Dist: >3cm Neck ROM: Full Loose/Missing/Broken Teeth: No (patient denies any loose or broken teeth) Heart: S1S2 Lungs: CTAB Assessment and Plan Assessment Anesthesia Assessment: Anesthesia Plan Discussed and Chart Reviewed Final Anesthetic Review Family History of Problems with Anesthesia: No History of Problems with Anesthesia: No NPO: Yes ASA Class: II Final Preanesthetic Review: No Changes in Pt Med Stat, Meds/Allgs Chart Re viewed, Consent Obtained/Reviewed and Anes Risks/Benef Reviewed Patient Risk: Low Procedure Risk: Low Anesthetic Plan Anesthetic Plan: GA and Agree w/ Assess. and Plan Disposition: Standard PACU
[2024-07-11] MEDS: Lactated Ringers 1,000 ML 100 ML IVCONT (12:13)
--- NOTE | 2024-07-11 13:19 | W.PM.OPN ---
Operative Note Operative Note Date of Service: 07/11/24 Narrative: Preoperative diagnosis: [] Large incarcerated umbilical hernia Postop diagnosis: [] The same Procedure [] open umbilical herniorrhaphy with Bard mesh, partial omentectomy of large omental contents which were not reducible Surgeon: [] Adolfo Cardiac Exercise Physiologist: [] Type of Anesthesia: [] General Indication for surgery: [] Roughly 4 cm incarcerated umbilical hernia with omental contents Findings: [] Patient brought to the operating room, placed on operative table supine position, after an adequate level of general anesthesia was induced, the patient's abdomen which was moderately corpulent was prepped and draped in usual sterile fashion using an infraumbilical curvilinear incision, this carried down through skin, subcutaneous tissue, were large hernia sac was identified, dissected off the posterior aspect of the umbilicus and dissected down through the fascia. Sac was opened and incarcerated omental contents along with sac were amputated using Bovie and 2-0 Vicryl ties. Fascia margins were circumferentially cleared. Inappropriately sized Bard mesh was placed in the defect and the superficial layer of the mesh was circumferentially sutured to the surrounding fascia using interrupted 0 Ethibond suture. At completion of procedure, mesh was in good position with no tension or gallops. Wound was irrigated, secured hemostasis, and closed in the following manner; posterior aspect of the umbilicus was tacked to the wound floor using interrupted 3-0 Vicryl sutures. Skin was closed using interrupted inverted dermal 3-0 Vicryl sutures followed by Steri-Strips and sterile dressings. Wound was infiltrated the beginning at the end of the case with 0.5% Marcaine/1% lidocaine. Sponge, needle, and instrument counts reported correct. Patient tolerated the procedure well and emerged from anesthesia stable condition. EBL minimal
[2024-07-11] MEDS: oxyCODONE HCl Immed Release 5 MG TABLET PO (14:00)
== END 2024-07-11 14:45 | disposition home or self-care (01) ==
LOC: HO.SSS 10:13
PROVIDERS: PCP Internal Medicine; Visit Provider Surgery
PROC: (CPT 49594; principal; 2024-07-11 12:40)
DX: K42.0 Umbilical hernia with obstruction, without gangrene (principal)
CPT/HCPCS: 49594; 88302; C1781; J0690; J1100; J2003; J2405; J2704; J2795; J3010

== ENCOUNTER → 2024-07-11 10:11 | Outpatient (BNV) | payer OTHER, SELFPAY | PROVIDERS: PCP Internal Medicine; Visit Provider Surgery | DX: K42.0 Umbilical hernia with obstruction, without gangrene (principal) | CPT/HCPCS: 49594 ==

== ENCOUNTER 2024-07-22 11:05 | Outpatient (AMB) | payer OTHER, SELFPAY ==
--- NOTE | 2024-07-22 11:06 | MHC.OFFVIS ---
Vital Signs 07/22/24 11:09 Height 5 ft 8 in Weight 205 lb BMI 31.2 Intake Visit Reasons: S/P Lg. incarcerated umbilical hernia w/mesh Intake Note: Patient here s/p open umbilical herniorrhaphy with Bard mesh, Reports incision healing well. Patient c/o: minimal discomfort Surgery: 07-11-2024. Allergies No Known Allergies Allergy (Verified 07/22/24 11:07) HPI Comments Details: Patient was to follow up. Tolerating diet. Having regular bowel habits. He has minimal incisional discomfort. He is increasing his activity level. [facility] Medical History Hernia, ventral Mass of soft tissue of abdomen Surgical History Incarcerated umbilical hernia (07/11/24) No pertinent past surgical history Family History Paternal Grandfather Mental health disorder Diabetes mellitus Paternal Grandmother Mental health disorder Mother Mental health disorder Father Essential hypertension Atherosclerotic coronary vascular disease Mother Asthma Maternal Grandfather Diabetes mellitus Maternal Uncle Diabetes mellitus Paternal Uncle Diabetes mellitus Social History Housing: House Patient Tobacco Use Status: Never used Tobacco e-Cigarette/Vaping Use: Never Used Substance Use Type: Marijuana service: No Current occupational status: employed Cognitive needs: No Hearing needs: No Vision needs: No Physical Exam Vital Signs: BMI result Body Mass Index 31.2 GI Other: Abdomen is soft. Incision clean dry and intact healing very well Assessment & Plan Assessment & Plan (1) Status post umbilical hernia repair, follow-up exam: Code(s): Z09 - Encounter for follow-up examination after completed treatment for conditions other than malignant neoplasm Category: Medical Plan Patient was been given local instructions including avoiding strenuous activities next few weeks time, no for out of work and then three-week light duty when he starts. All questions answered. Patient will otherwise follow-up p.r.n.. Coding Level of Care Code Global (36989) Diagnoses Status post umbilical hernia repair, follow-up exam Z09
[2024-07-22 11:09] VITALS: BMI 31.2
== END 2024-07-22 11:32 | disposition home or self-care (01) ==
LOC: HO.HGS 11:05
PROVIDERS: PCP Internal Medicine; Visit Provider Surgery
DX: K42.9 Umbilical hernia without obstruction or gangrene (principal); Z09 Encounter for follow-up examination after completed treatment for conditions other than malignant neoplasm
CPT/HCPCS: 99212

== ENCOUNTER → 2024-07-22 11:05 | Outpatient (BNVA) | payer OTHER, SELFPAY | PROVIDERS: PCP Internal Medicine; Visit Provider Surgery | DX: Z09 Encounter for follow-up examination after completed treatment for conditions other than malignant neoplasm (principal); Z87.19 Personal history of other diseases of the digestive system; Z98.890 Other specified postprocedural states | CPT/HCPCS: 99212 ==

== ENCOUNTER 2024-11-11 08:39 | Outpatient (REF) | payer OTHER, SELFPAY ==
[2024-11-11 13:11] LABS: MANUAL DIFF FLAG NO
[2024-11-11 13:29] LABS: Hematocrit 43.6 % (42.0-52.0); Hemoglobin 14.6 g/dl (14.0-18.0); Imm Gran Abs Auto 0.04 X10*3/uL (0.00-0.03); Imm Gran Pct Auto 0.7 % (0.0-0.4); Lymphocytes Absolute Auto 1.6 X10*3/uL (1.2-4.9); Mean Corpuscular HGB Conc 33.5 g/dl (31.0-36.0); Mean Corpuscular Hemoglobin 31.0 pg (27.0-33.0); Mean Corpuscular Volume 92.6 fL (80.0-98.0); NRBC Abs Auto 0.000 X10*3/uL (0.0-0.012); NRBC Pct Auto 0.0 /100WBC (0.0-0.2); Platelet Count 219 X10*3/uL (160-400); Red Blood Count 4.71 X10*6/uL (4.60-5.80); White Blood Count 5.4 X10*3/uL (4.8-10.8)
[2024-11-11 13:49] LABS: Alanine Aminotransferase 28 U/L (0-40); Anion Gap 12 (12-20); Aspartate Amino Transferase 33 U/L (5-37); Blood Urea Nitrogen 18 mg/dL (9-16); Calcium 8.9 mg/dL (8.4-10.2); Carbon Dioxide 23 mmol/L (22-29); Chloride 109 mmol/L (96-108); Cholesterol 231 mg/dL (<200); Estimated Glomerular Filt Rate > 60; HDL Cholesterol 34 mg/dL (>40); Potassium 3.7 mmol/L (3.3-5.1); Sodium 140 mmol/L (135-145); Triglycerides 310 mg/dL (<150)
== END 2024-11-11 08:40 | disposition home or self-care (01) ==
LOC: HO.HMGCLDS 08:39
PROVIDERS: PCP Internal Medicine; Visit Provider Internal Medicine
DX: Z00.01 Encounter for general adult medical examination with abnormal findings (principal); E66.811 Obesity, class 1; Z68.32 Body mass index [BMI] 32.0-32.9, adult; E73.9 Lactose intolerance, unspecified; Z13.31 Encounter for screening for depression; Z13.39 Encounter for screening examination for other mental health and behavioral disorders; Z13.220 Encounter for screening for lipoid disorders; Z13.1 Encounter for screening for diabetes mellitus
CPT/HCPCS: 36415; 80048; 80061; 82306; 84450; 84460; 85025; 96127; 99395

== ENCOUNTER 2024-11-11 08:39 | Outpatient (AMB) | payer OTHER, SELFPAY ==
--- NOTE | 2024-11-11 08:48 | A.OFFPC_ITS ---
Vital Signs 11/11/24 08:49 Height 5 ft 8 in Weight 214 lb BMI 32.5 BP 120/74 Blood Pressure Location Lt brachial Position Sitting Pulse 74 Pulse Source Pulse Oximeter Pulse Oximetry (%) 100 Oxygen Delivery Method Room Air Intake Visit Reasons: Annual PE Allergies No Known Allergies Allergy (Verified 11/11/24 09:33) Medication List - Last Reconciled 11/11/24 by Nieves Ferreira MD No Known Home Meds Tobacco use date assessed: 05/14/24 Dental Screening Dental Screen Date: 05/14/24 HPI Annual PE HPI Details - The patient is a 39-year-old male pres enting today for his physical exam - complains of recurrent heel pain , all eviated by rolling a frozen water bottle under the foot, associated with prolonged standing at work. - Family history of diabetes mellitus: S ignificant family history with father and grandfather affected, prompting screening. - Lactose intolerance: Experiences gastr ointestinal discomfort with dairy, attributed to lactose intolerance, also present in his mother. - Recent hernia surgery: Underwent herni a repair surgery three months ago, performed by Dr. Mata. [facility] Medical History (Updated 11/11/24 @ 09:40 by Nieves Ferreira MD) Obesity (BMI 30.0-34.9) Hernia, ventral Mass of soft tissue of abdomen Surgical History (Updated 11/11/24 @ 09:40 by Nieves Ferreira MD) Incarcerated umbilical hernia (07/11/24) No pertinent past surgical history Family History Paternal Grandfather Mental health disorder Diabetes mellitus Paternal Grandmother Mental health disorder Mother Mental health disorder Father Essential hypertension Atherosclerotic coronary vascular disease Mother Asthma Maternal Grandfather Diabetes mellitus Maternal Uncle Diabetes mellitus Paternal Uncle Diabetes mellitus Social History Housing: House Patient Tobacco Use Status: Never used Tobacco e-Cigarette/Vaping Use: Never Used Substance Use Type: Marijuana service: No Current occupational status: employed Cognitive needs: No Hearing needs: No Vision needs: No Questionnaire PHQ-9 Over the last 2 weeks, how often have you been bothered by any of the following problems? 1. Little interest or pleasure in doing things: several days 2. Feeling down, depressed, or hopeless: not at all 3. Trouble falling or staying asleep, or sleeping too much: several days 4. Feeling tired or having little energy: several days 5. Poor appetite or overeating: more than half the days 6. Feeling bad about yourself - or that you are a failure or have let yourself or your family down: not at all 7. Trouble concentrating on things, such as reading the newspaper or watching television: not at all 8. Moving or speaking so slowly that other people could have noticed. Or the opposite - being so fidgety or restless that you have been moving around a lot more than usual: not at all 9. Thoughts that you would be better off or of hurting yourself in some way: not at all Total score: 5 Depression Screening Interpretation: Negative Depression Screening Done: Yes [id number] - PHQ-9 Billing: Yes Source: Developed by Drs. Mike Blanco, Evelin Massey, Peter Henderson and colleagues, with an educational rebecca from [employer] Thrive Questionnaire Date Thrive assessed: 11/11/24 I am a: Patient What is your living situation today?: I have a steady place to live Within the past 12 months, did the food you bought not last and you didn't have the money to get more?: Often true Within the past 12 months, did you worry whether your food would run out before you got money to buy more?: Often true Do you have trouble paying for medicines?: No Do you have trouble getting transportation to medical appointments?: No Do you have trouble paying your heating and electricity bill?: Yes Do you have trouble taking care of your child, family member or friend?: No Do you have trouble with day-to-day activities such as bathing, preparing meals, shopping, managing finances, etc.?: No Are you currently unemployed and looking for a job?: No Are you interested in more education?: No Please select the resources that you would like help with: Food Currently or been in a relationship where the following occur: No concerns reported THRIVE Score: 3 AUDIT C Alcohol Use Questionnaire (AUDIT-C) 1. How often do you have a drink containing alcohol?: Monthly or less 2. How many drinks containing alcohol do you have on a typical day when you are drinking?: 1 or 2 3. How often do you have six or more drinks on one occasion?: Less than monthly Total Score: 2 Score Reviewed/Action Taken: Yes ADRIANE-7 AMB Questionnaire ADRIANE-7 Date ADRIANE - 7 assessed: 11/11/24 Feeling nervous, anxious, or on edge: 0 = Not at all Not being able to stop or control worryin = Not at all Worrying too much about different things: 0 = Not at all Trouble relaxin = Not at all Being so restless that it is hard to sit still: 0 = Not at all Becoming easily annoyed or irritable: 1 = Several days Feeling afraid as if something awful might happen: 0 = Not at all Total ADRIANE-7 score (0-4 normal; 5-9 mild; 10-14 moderate; 15-21 severe): 1 Source: Developed by Drs. Mike Blanco, Evelin Massey, Peter Henderson and colleagues, with an educational rebecca from [employer] ADRIANE-7 Assessment Billing ADRIANE-7 Assessment Tool: ADRIANE-7 Assessment 75003 Review of Systems Const Denies body aches, Denies fatigue and Denies headache(s) Eyes Reports no additional complaints and Denies itchy eyes ENT Denies dizziness and Denies headache(s) Card Denies chest pain, Denies lightheadedness, Denies palpitations and Denies dyspnea Resp Denies chest congestion, Denies cough, Denies dyspnea and Denies wheezing GI Denies abdominal pain, Denies change in bowel habits and Denies heartburn Denies hematuria, Denies difficulty urinating, Denies dysuria, Denies urinary frequency and Denies urinary urgency Musc Reports no additional complaints Skin/Breast Denies lesions and Denies rash Neuro Denies dizziness and Denies headache(s) Psych Reports no additional complaints Endo Denies fatigue, Denies polydipsia, Denies polyuria and Denies palpitations Collin/Lymph Denies easy bruising Aller/Immun Denies itchy eyes, Denies seasonal rhinorrhea and Denies wheezing Physical exam (Primary Care) Vital Signs: Last Vital Signs Pulse 74 11/11/24 08:49 BP 120/74 11/11/24 08:49 Pulse Ox 100 11/11/24 08:49 Oxygen Delivery Method Room Air 11/11/24 08:49 BMI result Body Mass Index 32.5 Tobacco/Smoking Status: Tobacco use Status Tobacco use date assessed 05/14/24 11/11/24 08:50 Patient Tobacco Use Status Never used Tobacco 11/11/24 08:50 e-Cigarette/Vaping Use Never Used 11/11/24 08:50 PHQ-9: PHQ-9 Score PHQ-9: Total score 5 11/11/24 09:42 Depression Screening Interpretation: Negative Thrive Assessment: Date of Thrive Assessment Date Thrive assessed 11/11/24 11/11/24 08:50 Currently or been in a relationship where the following occur: No concerns reported Const Other: Alert oriented x3, no acute distress noted ambulatory normal gait Orientation/consciousness: patient oriented x3 HENMT Head: Yes normocephalic Ears: external ears normal, TM's normal bilaterally and EAC's normal General nose exam: Normal external nose present Face and sinus: Yes face symmetric Mouth: Normal oral and palatal mucosa present, oropharynx normal and moist mucous membranes Eyes General: appearance normal, both eyes and all related structures Neck Other: Supple with no lymphadenopathy Chest Breast/axilla inspection: normal inspection of the breasts Resp Auscultation: clear to auscultation bilaterally Cardio Rate: regular rate Rhythm: regular rhythm Heart sounds: S1 normal heart sound present and S2 normal heart sound present GI Palpation (GI): Soft to palpation, nontender and no guarding Auscultation: normal bowel sounds General: Yes no CVA tenderness Male General Exam: Yes normal external exam Back/Spine/Pelvis Back: no CVA tenderness and No back tenderness Skin General skin exam: no rashes or lesions noted Neuro General: patient oriented x3, gait normal, tone normal, moves all extremities and no focal motor deficits Extrem General: Yes normal to inspection, Yes full ROM, Yes no joint enlargement and Yes no pedal edema Psych Appearance: grossly normal and well kempt Mental Status: mental status grossly normal Speech and movement: Normal speech and movement present Affect: normal affect Coding Level of Care Code Est Pt Prev Care 18-39y(02446) Diagnoses Annual visit for general adult medical examination with abnormal findings Z00.01 Obesity (BMI 30.0-34.9) E66.811 Additional Codes ADRIANE-7 Assessment Billing - ADRIANE-7 Assessment Tool: ADRIANE-7 Assessment 24994 ([id number]) PHQ-9 - 96285 - PHQ-9 Billing: Yes ([id number]) Assessment & Plan Assessment & Plan (1) Annual visit for general adult medical examination with abnormal findings: Code(s): Z00.01 - Encounter for general adult medical examination with abnormal findings (2) Obesity (BMI 30.0-34.9): Code(s): E66.811 - Obesity, class 1 Category: Medical Plan The patient will undergo screening for diabetes mellitus due to a significant family history. Fasting comprehensive panel, fasting lipid panel were ordered. Non-pharmacological methods such as rolling a frozen water bottle under the foot are advised for managing plantar fasciitis symptoms. Emphasis is placed on wearing supportive footwear and taking breaks during prolonged standing at work to alleviate heel pain. Dietary modifications to avoid dairy products are recommended to prevent gastrointestinal discomfort due to lactose intolerance. The patient is encouraged to increase sun exposure to enhance vitamin D synthesis, especially considering his indoor work environment. Follow-up appointments are suggested to monitor the patient's condition and evaluate the effectiveness of the current management strategies. Patient was informed and verbally consented to the use of an ambient scribe for clinic note documentation during this visit. Orders: Orders Complete Blood Count Auto Diff 11/11/24 E66.811 - Obesity, class 1, Z00.01 - Encounter for general adult medical examination with abnormal findings, Z13.1 - Encounter for screening for diabetes mellitus, Z13.220 - Encounter for screening for lipoid disorders Basic Metabolic Panel Fasting 11/11/24 E66.811 - Obesity, class 1, Z00.01 - Encounter for general adult medical examination with abnormal findings, Z13.1 - Encounter for screening for diabetes mellitus, Z13.220 - Encounter for screening for lipoid disorders Lipid Panel 11/11/24 E66.811 - Obesity, class 1, Z00.01 - Encounter for general adult medical examination with abnormal findings, Z13.1 - Encounter for s creening for diabetes mellitus, Z13.220 - Encounter for screening for lipoid disorders Alanine Aminotransferase 11/11/24 E66.811 - Obesity, class 1, Z00.01 - Encounter for general adult medical examination with abnormal findings, Z13.1 - Encounter for screening for diabetes mellitus, Z13.220 - Encounter for screening for lipoid disorders Aspartate Amino Transferase 11/11/24 E66.811 - Obesity, class 1, Z00.01 - Encounter for general adult medical examination with abnormal findings, Z13.1 - Encounter for screening for diabetes mellitus, Z13.220 - Encounter for screening for lipoid disorders Vitamin D 25-OH Total 11/11/24 E66.811 - Obesity, class 1, Z00.01 - Encounter for general adult medical examination with abnormal findings, Z13.1 - Encounter for screening for diabetes mellitus, Z13.220 - Encounter for screening for lipoid disorders
[2024-11-11 08:49] VITALS: BP 120/74; PULSE 74; O2SAT 100; BMI 32.5
== END 2024-11-11 09:52 | disposition home or self-care (01) ==
LOC: HO.HMCC 08:40
PROVIDERS: PCP Internal Medicine; Visit Provider Internal Medicine
DX: Z00.01 Encounter for general adult medical examination with abnormal findings (principal); E66.811 Obesity, class 1; Z68.32 Body mass index [BMI] 32.0-32.9, adult